=== PATIENT | male | born 1980 | race Caucasian/White ===

== ENCOUNTER 2022-01-21 08:17 | Emergency (ER) | payer BC ==
[~2022-01-21 08:17] MED LIST: PROTONIX 40 MG40 M1 PO; ZANTAC150 MG PO
[2022-01-21 08:48] LABS: HEMOGLOBIN 16.9 gm/dl (14.0-17.5); RED BLOOD COUNT 5.47 M/UL (4.20-5.50); WHITE BLOOD COUNT 12.3 K/UL (4.5-11.0)
[2022-01-21 09:11] LABS: BUN/CREATININE RATIO 19 (0-10)
[2022-01-21] MEDS ORDERED: HYDROCODON-ACE1 EAC4 PO (11:14)
== END 2022-01-21 13:03 | disposition home or self-care (01) ==
LOC: ER1 08:17
PROVIDERS: Emergency Medicine
DX: N13.2 Hydronephrosis with renal and ureteral calculous obstruction (principal); R91.1 Solitary pulmonary nodule
CPT/HCPCS: 80053; 81001; 85025; 96374; 96375; 99284; J1885; J2270; J2405